=== PATIENT | female | born 1995 | race Caucasian/White ===

== ENCOUNTER 2017-05-22 10:18 | Emergency (ER) | payer MEDICAID ==
[2017-05-22 10:56] LABS: HCT - HEMATOCRIT 46.4 % (37.0-47.0); HGB - HEMOGLOBIN 15.8 g/dL (12.0-16.0); MEAN CORPUSCULAR HGB CONC 34.1 g/dL (32.0-36.0); MEAN PLATELET VOLUME 9.5 fL (7.9-10.8); RED BLOOD COUNT 5.1 10^6/uL (4.20-5.40); RED CELL DISTRIBUTION WIDTH 13.2 % (12.0-15.0); WHITE BLOOD COUNT 10.1 x10^3/uL (4.8-10.8)
[2017-05-22 11:19] LABS: ALBUMIN/GLOBULIN RATIO 1.5 (1.0-2.2); CALCIUM 9.2 mg/dL (8.5-10.3); CREATININE 0.7 mg/dL (0.4-1.0); POTASSIUM 3.9 mmol/L (3.5-5.0); TOTAL PROTEIN 8.4 g/dL (6.7-8.2)
[2017-05-22] MEDS ORDERED: SODIUM CHLORIDE 0.9% 1,000 ML IV ONE ×2 (11:41→13:46)
[2017-05-22] MEDS ORDERED: HYDROmorphone 0.5 MG/0.5 ML SYRINGE IVP STA (11:41)
[2017-05-22] MEDS ORDERED: PROMETHAZINE INJ 12.5 MG in SODIUM CHLORIDE 0.9% 50 ML IV STA (11:44)
[2017-05-22 11:55] LABS: BILIRUBIN,URINE NEGATIVE (NEGATIVE); PH,URINE 5.5 PH (5.0-7.5)
[2017-05-22 12:01] LABS: HCG UR QUAL NEGATIVE; UA w/ MICROSCOPIC CHARGE YES
[2017-05-22 12:09] LABS: UR CULTURE IF IND NOT INDICATED; WBC,URINE 0-3 /HPF (0-5)
[2017-05-22] MEDS ORDERED: PROMETHAZINE 25 MG/1 ML VIAL ONE (12:17)
[2017-05-22] MEDS ORDERED: HYDROmorphone 1 MG/ML SYRINGE ONE (12:17)
--- NOTE | 2017-05-22 15:14 | ED Physician Documentation ---
PD HPI ABD PAIN - Stated complaint Stated Complaint: V/D - Chief complaint Chief Complaint: Abd Pain - History obtained from History obtained from: Patient - History of Present Illness Timing - onset: Last night Timing - details: Still present Quality: Dull Location: Epigastric Associated symptoms: Nausea, Vomiting, Diarrhea. No: Fever Similar symptoms before: Has not had sx before - Additional information Additional information: The patient is a 21-year-old female who presents with epigastric abdominal pain that started last night and persists today. She reports watery diarrhea and nausea with numerous episodes of vomiting. She denies fever, cough, or dysuria. Her last menstrual period was 3 weeks ago. She denies history of similar symptoms in the past. No other family members are ill. Review of Systems Constitutional: reports: Fatigue. denies: Fever Nose: denies: Congestion Throat: denies: Sore throat Cardiac: denies: Chest pain / pressure Respiratory: denies: Dyspnea GI: reports: Abdominal Pain, Nausea, Vomiting, Diarrhea : reports: LMP (3 weeks ago). 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 HEENT: None Psych: None Musculoskeletal: None Derm: None - Past Surgical History Past Surgical History: No - Present Medications Home Medications: Ambulatory Orders Medication Instructions Recorded Confirmed Promethazine [Phenergan] 25 - 50 mg PO Q6H PRN #10 tab 05/22/17 - Allergies Allergies/Adverse Reactions: Allergies Allergy/AdvReac Type Severity Reaction Status Date / Time No Known Drug Allergies Allergy Verified 12/28/15 11:02 - Social History Does the pt smoke?: No Smoking Status: Never smoker Does the pt drink ETOH?: No Does the pt have substance abuse?: No - Immunizations Immunizations are current?: Yes - POLST Patient has POLST: No POLST Status: Full Code PD ED PE NORMAL - Vitals Vital signs reviewed: Yes (tachycardia.) - General General: Alert and oriented X 3, Well developed/nourished, Other (Appears fatigued.) - HEENT HEENT: Atraumatic, Moist mucous membranes, Pharynx benign - Neck Neck: Supple, no meningeal sign, No adenopathy - Cardiac Cardiac: No murmur, Other (Rapid rate, regular rhythm.) - Respiratory Respiratory: No respiratory distress, Clear bilaterally - Abdomen Abdomen: Normal bowel sounds, Soft, Other (Mild epigastric tenderness to palpation, without rebound or guarding.) - Back Back: No CVA TTP - Derm Derm: Normal color, No rash - Extremities Extremities: No edema, No calf tenderness / cord - Neuro Neuro: Alert and oriented X 3, No motor deficit, No sensory deficit Results - Vitals Vitals: Oxygen O2 Source Room air - Labs Labs: Laboratory Tests 05/22/17 05/22/17 05/22/17 10:50 10:50 11:35 WBC 10.1 RBC 5.10 Hgb 15.8 Hct 46.4 MCV 91.0 MCH 31.0 MCHC 34.1 RDW 13.2 Plt Count 244 MPV 9.5 Sodium 137 Potassium 3.9 Chloride 106 Carbon Dioxide 21 Anion Gap 10.0 BUN 15 Creatinine 0.7 Estimated GFR (MDRD) 105 Glucose 109 H Calcium 9.2 Total Bilirubin 1.0 AST 24 ALT 22 Alkaline Phosphatase 81 Total Protein 8.4 H Albumin 5.0 Globulin 3.4 Albumin/Globulin Ratio 1.5 Lipase 33 Urine Color YELLOW Urine Clarity CLEAR Urine pH 5.5 Ur Specific [place] >=1.030 H Urine Protein NEGATIVE Urine Glucose (UA) NEGATIVE Urine Ketones NEGATIVE Urine Occult Blood SMALL H Urine Nitrite NEGATIVE Urine Bilirubin NEGATIVE Urine Urobilinogen 0.2 (NORMAL) Ur Leukocyte Esterase NEGATIVE Urine RBC 0-5 Urine WBC 0-3 Ur Squamous Epith Cells MOD Squamous H Urine Bacteria None Seen Ur Microscopic Review INDICATED Urine Culture Comments NOT INDICATED Urine HCG, Qual 05/22/17 11:35 WBC RBC Hgb Hct MCV MCH MCHC RDW Plt Count MPV Sodium Potassium Chloride Carbon Dioxide Anion Gap BUN Creatinine Estimated GFR (MDRD) Glucose Calcium Total Bilirubin AST ALT Alkaline Phosphatase Total Protein Albumin Globulin Albumin/Globulin Ratio Lipase Urine Color Urine Clarity Urine pH Ur Specific [place] >1.030 Urine Protein Urine Glucose (UA) Urine Ketones Urine Occult Blood Urine Nitrite Urine Bilirubin Urine Urobilinogen Ur Leukocyte Esterase Urine RBC Urine WBC Ur Squamous Epith Cells Urine Bacteria Ur Microscopic Review Urine Culture Comments Urine HCG, Qual NEGATIVE PD MEDICAL DECISION MAKING - ED course Complexity details: reviewed results, re-evaluated patient, considered differential, d/w patient ED course: The patient's presentation is most consistent with viral gastroenteritis with associated dehydration. Her abdominal exam is benign on repeated evaluations. Her CBC, chemistry panel, and urinalysis are normal. Treatment in the emergency department included administration of normal saline 2 L IV, hydromorphone 1 mg IV, and Phenergan 12.5 mg IV. Her symptoms improved dramatically with the above treatment. She is being discharged with a prescription for Phenergan. I discussed with her the expected course of illness , symptomatic treatment and outpatient follow-up, as well as potentially worrisome signs or symptoms that should prompt reevaluation in the emergency department. Departure - Departure Disposition: Home, Self Care Clinical Impression: Gastroenteritis, Dehydration Condition: Stable Instructions: ED Gastroenteritis Viral Follow-Up: [facility] [Provider Group] Prescriptions: Promethazine [Phenergan] 25 - 50 mg PO Q6H PRN #10 tab PRN Reason: Nausea / Vomiting Comments: Drink plenty of fluids. You can use Phenergan as prescribed if needed for nausea. Follow up with her primary physician within one to 2 weeks. Call to schedule an appointment. Return to the emergency department if you develop increasing abdominal pain, persistent vomiting, recurrent dehydration, or otherwise worsening symptoms. Discharge Date/Time: 05/22/17 15:33
[2017-05-22 15:16] VITALS: BP 100/51
== END 2017-05-22 15:33 | disposition home or self-care (01) ==
LOC: ED 10:18
DX: E86.0 Dehydration (principal); K52.9 Noninfective gastroenteritis and colitis, unspecified
CPT/HCPCS: 36415; 80053; 81001; 81025; 83690; 85027; 96361; 96365; 96375; 99283; 99284; J1170; J7040; 81003; 87086

== ENCOUNTER 2017-11-24 08:00 | Outpatient (CLI) | payer MEDICAID | END 2017-11-24 08:01 | LOC: LAB.N 08:00 | PROVIDERS: ATTEND Nurse Practitioner | DX: L02.412 Cutaneous abscess of left axilla (principal) | CPT/HCPCS: 87070; 87205 ==

== ENCOUNTER 2018-03-23 02:37 | Emergency (ER) | payer MEDICAID ==
[2018-03-23 02:56] LABS: BILIRUBIN,URINE NEGATIVE (NEGATIVE); GLUCOSE, URINE (UA) NEGATIVE (NEGATIVE); KETONES,URINE (UA) NEGATIVE (NEGATIVE); LEUKOCYTE ESTERASE, URINE MODERATE (NEGATIVE); NITRITE,URINE NEGATIVE (NEGATIVE); OCCULT BLOOD,URINE SMALL (NEGATIVE); PROTEIN,URINE NEGATIVE (NEGATIVE); UROBILINOGEN,URINE 0.2 (NORMAL) E.U./dL (NORMAL)
[2018-03-23 03:12] LABS: BACTERIA,URINE None Seen /HPF (None Seen); CLARITY,URINE CLEAR (CLEAR); HCG UR QUAL NEGATIVE; SQUAMOUS EPITHELIAL CELL,UR MOD Squamous (<= Few)
[2018-03-23] MEDS ORDERED: FLUCONAZOLE 100 MG TABLET PO STA (03:15)
--- NOTE | 2018-03-23 03:18 | ED Physician Documentation ---
PD HPI FEMALE - Stated complaint Stated Complaint: FEMALE - Chief complaint Chief Complaint: General - History obtained from History obtained from: Patient - History of Present Illness Timing - onset: Yesterday Timing - details: Gradual onset, Still present Associated symptoms: Pelvic pain, Vaginal discharge Similar symptoms before: Has not had sx before Recently seen: Not recently seen - Additional information Additional information: Patient is a 22 year old female with no significant past medical history who is presenting to the emergency department for presumed yeast infection. Patient states that she had some white discharge, and some vaginal itching. Patient states that she tried to schedule an appointment with her doctor but the itching was bad so she came to the emergency department. 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 HEENT: None Psych: None Musculoskeletal: None Derm: None - Past Surgical History Past Surgical History: No - Present Medications Home Medications: Ambulatory Orders Medication Instructions Recorded Confirmed No Known Home Medications [No 03/23/18 03/23/18 Known Home Medications] - Allergies Allergies/Adverse Reactions: Allergies Allergy/AdvReac Type Severity Reaction Status Date / Time No Known Drug Allergies Allergy Verified 03/23/18 02:44 - Social History Does the pt smoke?: No Smoking Status: Never smoker Does the pt drink ETOH?: No Does the pt have substance abuse?: No - Immunizations Immunizations are current?: Yes - POLST Patient has POLST: No POLST Status: Full Code PD ED PE NORMAL - Vitals Vital signs reviewed: Yes - General General: No acute distress - HEENT HEENT: Atraumatic - Cardiac Cardiac: RRR - Respiratory Respiratory: No respiratory distress - Abdomen Abdomen: Soft - Female Female : Deferred - Derm Derm: Normal color, Warm and dry - Extremities Extremities: No deformity - Neuro Neuro: Alert and oriented X 3 Results - Vitals Vitals: Vital Signs - 24 hr 03/23/18 02:41 Temperature 36.6 C Heart Rate 82 Respiratory 18 Rate Blood Pressure 125/79 O2 Saturation 98 Oxygen O2 Source Room air - Labs Labs: Laboratory Tests 03/23/18 03/23/18 02:40 02:40 Urine Color YELLOW Urine Clarity CLEAR Urine pH 6.0 Ur Specific [place] 1.020 1.020 Urine Protein NEGATIVE Urine Glucose (UA) NEGATIVE Urine Ketones NEGATIVE Urine Occult Blood SMALL H Urine Nitrite NEGATIVE Urine Bilirubin NEGATIVE Urine Urobilinogen 0.2 (NORMAL) Ur Leukocyte Esterase MODERATE H Urine RBC 6-10 H Urine WBC 0-3 Ur Squamous Epith Cells MOD Squamous H Urine Bacteria None Seen Urine Culture Comments NOT INDICATED Urine HCG, Qual NEGATIVE PD MEDICAL DECISION MAKING - ED course Complexity details: reviewed old records, reviewed results, considered differential, d/w patient ED course: Patient was seen and examined at bedside. patient was well appearing and in no distress. urine was collected. Patient was not and was treated with diflucan. patient required no further inpatient work up and was stable for discharge with outpatient follow up. - Sepsis Event Vital Signs: Vital Signs - 24 hr 03/23/18 02:41 Temperature 36.6 C Heart Rate 82 Respiratory 18 Rate Blood Pressure 125/79 O2 Saturation 98 Oxygen O2 Source Room air Departure - Departure Disposition: 01 Home, Self Care Clinical Impression: Jennie infection of genital region Condition: Good Instructions: ED Vaginal Infec Fungal Jennie Follow-Up: Hannah Kelley DNP [Primary Care Provider] - Within 3 Days Comments: Your symptoms today are likely being caused by a yeast infection. You had the oral medication today. You can get over the counter medications like monistat for symptom relief. You should follow up with your doctor if symptoms persist. You may return to the emergency department at any time for new, worsening or uncontrollable symptoms.
[2018-03-23 03:28] VITALS: BP 119/74
== END 2018-03-23 03:27 | disposition home or self-care (01) ==
LOC: ED 02:37
DX: B37.3 Candidiasis of vulva and vagina (principal)
CPT/HCPCS: 81001; 81025; 99283; A9270; 87086

== ENCOUNTER 2018-10-28 18:35 | Emergency (ER) | payer MEDICAID ==
[2018-10-28] MEDS ORDERED: PENICILLIN VK 250 MG TABLET PO STA (20:49)
[2018-10-28] MEDS ORDERED: DEXAMETHASONE 10 MG/ML VIAL PO STA (20:49)
--- NOTE | 2018-10-28 20:49 | ED Physician Documentation ---
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 HEENT: None Psych: None Musculoskeletal: None Derm: None - Past Surgical History Past Surgical History: No - Present Medications Home Medications: Ambulatory Orders Medication Instructions Recorded Confirmed Penicillin V Potassium 500 mg PO Q6HR #40 tablet 10/28/18 - Allergies Allergies/Adverse Reactions: Allergies Allergy/AdvReac Type Severity Reaction Status Date / Time No Known Drug Allergies Allergy Verified 10/28/18 19:16 - Social History Does the pt smoke?: No Smoking Status: Never smoker Does the pt drink ETOH?: No Does the pt have substance abuse?: No - Immunizations Immunizations are current?: Yes - POLST Patient has POLST: No POLST Status: Full Code PD ED PE NORMAL - Vitals Vital signs reviewed: Yes - General General: Alert and oriented X 3, No acute distress - HEENT HEENT: PERRL, EOMI, Other (Tonsils are quite red, no swelling or exudates. No adenopathy.) - Neck Neck: Supple, no meningeal sign - Neuro Neuro: Alert and oriented X 3, Normal speech - Psych Psych: Normal mood, Normal affect Results - Vitals Vitals: Vital Signs - 24 hr 10/28/18 10/28/18 19:11 20:27 Temperature 38.5 C H 37.7 C H Heart Rate 124 H 110 H Respiratory 18 16 Rate Blood Pressure 116/62 108/63 O2 Saturation 98 98 Oxygen O2 Source Room air - Labs Labs: Laboratory Tests 10/28/18 10/28/18 19:15 19:15 Influenza A (Rapid) Negative Influenza B (Rapid) Negative Group A Strep Rapid POSITIVE H Departure - Departure Disposition: 01 Home, Self Care Clinical Impression: Strep pharyngitis Condition: Good Record reviewed to determine appropriate education?: Yes Instructions: ED Strep Pharyngitis Conf Prescriptions: Penicillin V Potassium 500 mg PO Q6HR #40 tablet Comments: Follow-up with your doctor 1 week. You can take ibuprofen per package instructions as needed for pain. Return if worse.
[2018-10-28 20:57] VITALS: BP 105/64
== END 2018-10-28 20:57 | disposition home or self-care (01) ==
LOC: ED 18:35
DX: J02.0 Streptococcal pharyngitis (principal)
CPT/HCPCS: 87275; 87276; 87430; 99283; A9270

== ENCOUNTER 2019-09-09 09:41 | Outpatient (CLI) | payer BC, MEDICAID ==
[2019-09-09 11:53] LABS: BASOPHILS % (AUTO) 0.7 %; EOSINOPHILS # (AUTO) 0.1 10^3/uL (0.0-0.7); HGB - HEMOGLOBIN 13.7 g/dL (12.0-16.0); LYMPHOCYTES # (AUTO) 1.8 10^3/uL (1.5-3.5); MEAN CORPUSCULAR HEMOGLOBIN 32.2 pg (27.0-31.0); MEAN CORPUSCULAR HGB CONC 33.4 g/dL (32.0-36.0); MEAN CORPUSCULAR VOLUME 96.5 fL (81.0-99.0); MEAN PLATELET VOLUME 11.8 fL (7.9-10.8); MONOCYTES # (AUTO) 0.2 10^3/uL (0.0-1.0); MONOCYTES % (AUTO) 3.7 %; NEUTROPHILS # (AUTO) 3.8 10^3/uL (1.5-6.6); NEUTROPHILS % (AUTO) 63.4 %; PLT - PLATELET COUNT 263 10^3/uL (130-450); RED BLOOD COUNT 4.25 10^6/uL (4.20-5.40); RED CELL DISTRIBUTION WIDTH 12.4 % (12.0-15.0); WHITE BLOOD COUNT 5.9 x10^3/uL (4.8-10.8)
[2019-09-09 12:12] LABS: ALBUMIN 4.4 g/dL (3.2-5.5); ALBUMIN/GLOBULIN RATIO 1.3 (1.0-2.2); BILIRUBIN,TOTAL 0.8 mg/dL (0.2-1.0); CALCIUM 9.2 mg/dL (8.5-10.3); CREATININE 0.7 mg/dL (0.4-1.0); TOTAL PROTEIN 7.9 g/dL (6.7-8.2)
== END 2019-09-09 23:59 | disposition home or self-care (01) ==
LOC: LAB.N 09:41
PROVIDERS: ATTEND Nurse Practitioner Gerontology
DX: Z00.00 Encounter for general adult medical examination without abnormal findings (principal); R53.83 Other fatigue; G47.00 Insomnia, unspecified
CPT/HCPCS: 36415; 80050

== ENCOUNTER 2022-10-22 07:14 | Outpatient (CLI) | payer BC ==
[2022-10-22 11:41] LABS: BASOPHILS % (AUTO) 0.7 %; EOSINOPHILS # (AUTO) 0.1 10^3/uL (0.0-0.7); EOSINOPHILS % (AUTO) 1.4 %; HCT - HEMATOCRIT 43.5 % (37.0-47.0); LYMPHOCYTES # (AUTO) 1.5 10^3/uL (1.5-3.5); LYMPHOCYTES % (AUTO) 25.7 %; MEAN CORPUSCULAR HEMOGLOBIN 32.1 pg (27.0-31.0); MEAN CORPUSCULAR HGB CONC 32.2 g/dL (32.0-36.0); MEAN CORPUSCULAR VOLUME 99.8 fL (81.0-99.0); MEAN PLATELET VOLUME 12.2 fL (7.9-10.8); MONOCYTES # (AUTO) 0.3 10^3/uL (0.0-1.0); MONOCYTES % (AUTO) 5.8 %; NEUTROPHILS # (AUTO) 3.9 10^3/uL (1.5-6.6); NEUTROPHILS % (AUTO) 66.2 %; PLT - PLATELET COUNT 211 10^3/uL (130-450); RED BLOOD COUNT 4.36 10^6/uL (4.20-5.40); RED CELL DISTRIBUTION WIDTH 12.6 % (12.0-15.0); WHITE BLOOD COUNT 5.9 x10^3/uL (4.8-10.8)
[2022-10-22 11:47] LABS: ALBUMIN 4.5 g/dL (3.2-5.5); ALBUMIN/GLOBULIN RATIO 1.5 (1.0-2.2); ALKALINE PHOSPHATASE 42 IU/L (42-121); ALT ALANINE AMINOTRANSFERASE 15 IU/L (10-60); AST ASPARTATE AMINOTRANSFERASE 19 IU/L (10-42); BILIRUBIN,TOTAL 0.5 mg/dL (0.2-1.0); BUN - BLOOD UREA NITROGEN 19 mg/dL (6-20); CALCIUM 9.1 mg/dL (8.5-10.3); CARBON DIOXIDE - CO2 25 mmol/L (21-32); CHLORIDE 106 mmol/L (101-111); CHOL/HDL RATIO 2.9 (<4.4); CHOLESTEROL 147 mg/dL; CREATININE 0.8 mg/dL (0.4-1.0); GFR - MDRD 85 (>89); GLUCOSE 91 mg/dL (70-100); HDL CHOLESTEROL 50 mg/dL; LDL CHOLESTEROL,CALCULATED 86 mg/dL; LDL/HDL RATIO 1.7 (<4.4); POTASSIUM 3.8 mmol/L (3.5-5.0); SODIUM 138 mmol/L (135-145); TOTAL PROTEIN 7.6 g/dL (6.7-8.2); TRIGLYCERIDES 54 mg/dL; VLDL CHOLESTEROL 11 mg/dL
[2022-10-22 11:57] LABS: THYROID STIMULATING HORMONE 3.57 uIU/mL (0.34-5.60)
== END 2022-10-22 07:15 | disposition home or self-care (01) ==
LOC: LAB.N 07:14
PROVIDERS: ATTEND Nurse Practitioner
DX: Z13.9 Encounter for screening, unspecified (principal); Z13.220 Encounter for screening for lipoid disorders; F32.A Depression, unspecified
CPT/HCPCS: 36415; 80053; 80061; 83721; 84443; 85025